=== PATIENT | male | born 1985 | race Asian ===

== ENCOUNTER 2016-07-05 17:48 | Emergency (ER) | payer OTHER ==
[~2016-07-05] VITALS: Ht 162.6 cm; Wt 68.5 kg
[2016-07-05 18:16] VITALS: Ht 162.6 cm; Wt 68.5 kg
[2016-07-05] MEDS ORDERED: TRIA15OI9 TOP (18:34)
[2016-07-05] MEDS ORDERED: HYDR-3011 PO (18:34)
--- NOTE | 2016-07-05 18:38 | ERD ---
ER Documentation Chief Complaint Date/Time DATE: 07/05/16 TIME: 18:36 Chief Complaint RASHES X 1 WEEK HPI 30-year-old male presents here in emergency department for complaint of rash and itching all over the body started one week ago. Patient has been taking Benadryl to help with symptoms with mild relief. Patient does not have any family members with the same type of rash. Patient does not have any fever or chills. Patient denies any other symptoms. Patient denies any lip swelling, tongue swelling or stridor. Patient denies being exposed to something new or different. ROS All systems reviewed and are negative except as per history of present illness. Medications Home Meds Active Scripts Triamcinolone Acetonide (Triamcinolone Acetonide) 0.5% - 15 Gm Oint..gm., 1 APPLIC TOP BID, #1 TUB Prov:KATRIN TORRES NP 07/05/16 Hydroxyzine Hcl* (Hydroxyzine Hcl*) 25 Mg Tablet, 25 MG PO Q8H Y for ITCHING, # 30 TAB Prov:KATRIN TORRES NP 07/05/16 Allergies Allergies: Coded Allergies: No Known Allergy (Unverified , 07/05/16) PMhx/Soc Medical and Surgical Hx: pt denies Medical Hx, pt denies Surgical Hx FmHx Family History: diabetes, other (HTN) Physical Exam Vitals Vital Signs Date Time Temp Pulse Resp B/P Pulse Ox O2 Delivery O2 Flow Rate FiO2 07/05/16 18:16 97.3 83 19 117/59 98 Physical Exam GENERAL: The patient is well developed and appropriate for usual state of health, in no apparent distress. CHEST: Clear to auscultation bilaterally. There are no rales, wheezes or rhonchi. HEART: Regular rate and rhythm. No murmurs, clicks, rubs or gallops. No S3 or S4. ABDOMEN: Soft, nontender and nondistended. Good bowel sounds. No rebound or guarding. No gross peritonitis. No gross organomegaly or masses. No Pearson sign or McBurney point tenderness. BACK: No midline or flank tenderness. EXTREMITIES: Equal pulses bilaterally. There is no peripheral clubbing, cyanosis or edema. No focal swelling or erythema. Full range of motion. Grossly neurovascularly intact. NEURO: Alert and oriented. Cranial nerves 2-12 intact. Motor strength in all 4 extremities with 5/5 strength. Sensation grossly intact. Normal speech and gait. SKIN: Maculopapular rash noted all over the body with some dryness of the skin noted. There is no apparent ecchymosis or petechia. The skin is warm and dry. HEMATOLOGIC AND LYMPHATIC: There is no evidence of excessive bruising or lymphedema. No gross cervical, axillary, or inguinal lymphadenopathy. Procedures/MDM Medical decision making: Patient's rash all over the body is nonspecific at this time, possible form of dermatitis, can be from dry skin. At this time, no symptoms of anaphylactic shock or urticaria. No symptoms of coagulopathies at this time. No symptoms of any contagious rash at this time. Patient was given for hydroxyzine, penicillin, patient is advised to follow-up with primary care doctor in 1-2 days for reevaluation of symptoms, see controller mechanic specialist if symptoms does not resolve. Departure Diagnosis: Primary Impression: Skin rash Condition: Stable Patient Instructions: Self-Care for Skin Rashes KATRIN TORRES NP Jul 05, 2016 18:38
== END 2016-07-05 18:33 | disposition home or self-care (01) ==
LOC: E/R 17:48
DX: R21 Rash and other nonspecific skin eruption (principal)
CPT/HCPCS: 99282